=== PATIENT | female | born 1990 | race Caucasian/White ===

== ENCOUNTER → 2020-09-30 | Outpatient (CLI) | payer OTHER ==
[~2020-09-30] MED LIST: SYNTHROID25 MCG PO
== END ==
LOC: KOH-I 12:59
DX: R06.00 Dyspnea, unspecified (principal)
CPT/HCPCS: 71046

== ENCOUNTER → 2020-11-29 | Outpatient (CLI) | payer OTHER | LOC: KOH-I 10-22 10:30 | DX: E78.1 Pure hyperglyceridemia (principal); K76.0 Fatty (change of) liver, not elsewhere classified | CPT/HCPCS: 76705 ==

== ENCOUNTER → 2021-01-26 | Outpatient (CLI) | payer OTHER | LOC: HEART 5 11:25 | DX: R00.2 Palpitations (principal) ==

== ENCOUNTER → 2021-11-16 | Outpatient (CLI) | payer OTHER ==
[~2021-11-16] MED LIST changes: +BUSPIRONE HCL5 MG PO; +LAMOTRIGINE150 MG PO; +TRAZODONE HCL100 MG PO; +VENLAFAXINE HC150 M1 PO; +VITAMIN D350 MC3 PO
[2021-11-16 10:31] LABS: HEMOGLOBIN 14.7 gm/dl (12.3-15.3); RED BLOOD COUNT 4.89 M/UL (4.00-5.10); WHITE BLOOD COUNT 11.6 K/UL (4.5-11.0)
== END ==
LOC: OPSV2 09:30
PROVIDERS: Obstetrics & Gynecology
DX: Z01.812 Encounter for preprocedural laboratory examination (principal); N81.9 Female genital prolapse, unspecified
CPT/HCPCS: 36415; 81001; 85025

== ENCOUNTER → 2021-11-28 | Day surgery (SDC) | payer OTHER ==
[~2021-11-28] MED LIST changes: +DOCUSATE SODIU250 MG PO; +HYDROCODONE-AC1 EACH PO; +IBUPROFEN600 MG PO
== END | disposition home or self-care (01) ==
LOC: OR 08:13
DX: N81.10 Cystocele, unspecified (principal); N81.6 Rectocele; N73.6 Female pelvic peritoneal adhesions (postinfective); J45.909 Unspecified asthma, uncomplicated; E66.9 Obesity, unspecified; Z90.710 Acquired absence of both cervix and uterus; Z20.822 Contact with and (suspected) exposure to COVID-19; Z87.891 Personal history of nicotine dependence; Z90.49 Acquired absence of other specified parts of digestive tract
CPT/HCPCS: C1769; J0690; J1170; J1885; J2001; J2250; J2405; J2704; J2710; J3010; J7050; J7120

== ENCOUNTER → 2021-12-12 | Outpatient (CLI) | payer OTHER | LOC: EXRD 11-28 13:30 → US 13:17 | DX: E04.9 Nontoxic goiter, unspecified (principal) | CPT/HCPCS: 76536 ==

== ENCOUNTER → 2022-03-16 | Outpatient (CLI) | payer OTHER | LOC: CT 01-11 15:30 | DX: R22.1 Localized swelling, mass and lump, neck (principal) | CPT/HCPCS: 71260; Q9967 ==